=== PATIENT | male | born 1950 | race Caucasian/White ===

== ENCOUNTER 2023-09-08 10:05 | Outpatient (RCR) | payer MEDICARE, OTHER, SELFPAY | END 2023-09-08 23:59 | disposition home or self-care (01) | LOC: RPT 10:05 | PROVIDERS: ATTENDING PHYSICIAN Psychiatry & Neurology Neurology; FAMILY PHYSICIAN Internal Medicine | DX: R26.89 Other abnormalities of gait and mobility (principal); G20.C Parkinsonism, unspecified; Z73.6 Limitation of activities due to disability | CPT/HCPCS: 97110; 97112; 97116; 97163; 97530 ==

== ENCOUNTER 2023-10-06 11:33 | Outpatient (RCR) | payer MEDICARE, OTHER, SELFPAY | END 2023-10-06 23:59 | disposition home or self-care (01) | LOC: RPT 11:33 | PROVIDERS: ATTENDING PHYSICIAN Psychiatry & Neurology Neurology; FAMILY PHYSICIAN Internal Medicine | DX: R26.89 Other abnormalities of gait and mobility (principal); G20.A1 Parkinson's disease without dyskinesia, without mention of fluctuations; Z73.6 Limitation of activities due to disability | CPT/HCPCS: 97110; 97112; 97530 ==

== ENCOUNTER 2023-10-14 08:49 | Outpatient (RCR) | payer MEDICARE, OTHER, SELFPAY | END 2023-10-14 11:26 | disposition home or self-care (01) | LOC: RPT 08:49 | PROVIDERS: ATTENDING PHYSICIAN Psychiatry & Neurology Neurology; FAMILY PHYSICIAN Internal Medicine | DX: R26.89 Other abnormalities of gait and mobility (principal); G20.C Parkinsonism, unspecified; Z73.6 Limitation of activities due to disability | CPT/HCPCS: 97110; 97112; 97530 ==

== ENCOUNTER 2024-10-24 16:29 | Emergency (ER) | payer SELFPAY ==
[2024-10-24 16:32] VITALS: BP 167/56
--- NOTE | 2024-10-24 18:02 | ED.GENMED ---
History of Present Illness
General
Chief Complaint: Musculo-Skeletal Complaint
Source: patient
Time Seen by Provider: 10/24/24 17:56
History of Present Illness
History of Present Illness:
73-year-old male presents to the emergency room complaining of injuries from a fall. Patient was at [facility] when he was knocked over by a skid steer. Patient is complaining of some pain to the left lateral thorax, left knee. He did not
have loss of consciousness. He denies any headache. He does take Eliquis. Patient was ambulatory after the fall. He denies any shortness of breath.
Past History
Past History
ED Past Medical History: Arrthythmia and HTN
ED Past Surgical History: Cholecystectomy and Orthopedic
Social History
Personal:
Living: with family
Phy Exam
Physical Exam
Physical Exam:
General: Awake, Alert, Oriented X3. No acute distress.
Vitals: unremarkable
Head: Atraumatic
Eyes: Pupils equal, EOMI
Throat: Airway intact, no exudates
Neck: Trachea midline
Chest: Mild tenderness palpation lateral, lower left thorax
Lungs: Clear and equal b/l
Heart: Regular rate, no murmurs
Abd: Soft, Nontender, No pulsatile mass
Neuro: Cranial nerves intact, muscle strength equal bilaterally
Skin: Warm, dry, no rash
Extremities: pulses equal b/l, no edema. Hematoma left medial knee. Remainder the knee has no tenderness palpation. Range of motion appears intact.
Course
Orders/Labs/Results
Orders:
Orders
10/24/24 16:37
CT Head W/o Iv Contrast Urgent
Comment:
Reason For Exam: head injury on eliquis
10/24/24 18:02
CR Chest - 2 Views Urgent
Comment:
Reason For Exam: fall, left side pain
Knee, Left 4 or More Views [CR Knee - Left 4 Or More View*] Urgent
Comment:
Reason For Exam: fall, pain
Vital Signs
Initial and Last Documented VS:
Initial Vital Signs
Temp Pulse Resp BP Pulse Ox
98.1 F 64 20 167/56 97
10/24/24 16:32 10/24/24 16:32 10/24/24 16:32 10/24/24 16:32 10/24/24 16:32
Last Documented Vital Signs
Temp Pulse Resp BP Pulse Ox
98.1 F 64 20 167/65 99
10/24/24 16:32 10/24/24 16:32 10/24/24 16:32 10/24/24 18:05 10/24/24 18:58
MDM/Problems Addressed
Differential Diagnosis Includes:
Rib fracture, pneumothorax, contusion, tibia fracture, knee contusion, intracranial injury
MDM/Problems Addressed:
Patient CT shows no acute abnormality. Imaging does not show any acute fracture. Chest x-ray also is negative for pneumothorax or effusion. Patient ambulated about the department without any difficulty. Stable for discharge home.
*Radiology
Radiology exam reviewed: preliminary read by ED provider (Knee x-ray, degenerative diseases no fracture, chest x-ray, no acute abnormality. CXR: NAD) and radiology read reviewed
*Pulse Oximetry
Patient hypoxic: no
*Critical Care Note
Total Time (30-74mins, 75-104mins- exclusive of procedures): Not Applicable
ED Attending Note
-
Portions of this chart may have been created with voice recognition software.� Occasional wrong word or��sound alike� substitutions may have occurred due to the inherent limitations of voice recognition software.
Discharge Plan
Departure
Patient Disposition: Home (Routine Discharge)
Date of Disposition: 10/24/24
Time of Disposition: 19:16
Patient with high blood pressure during this ER visit?: Yes
Condition: Good
Discharge Problem:
Contusion of knee, left, Chest wall contusion
Instructions: Contusion (DC), BLOOD PRESSURE
Prescriptions:
No Action
atorvastatin 40 MG tablet
20 mg PO HS
omega [id number]-[id number]-fish oil 1 EACH capsule
1,000 mg PO DAILY
metformin 500 MG tablet
500 mg PO BID@0800,1700 Qty: 60 0RF
pantoprazole 40 MG tablet,delayed release (DR/EC)
40 mg PO DAILY
apixaban [Eliquis] 5 MG tablet
5 mg PO BID
losartan 25 MG tablet
25 mg PO BID Qty: 60 0RF
furosemide 20 MG tablet
60 mg PO DAILY Qty: 90 0RF
Referrals:
Marito Verduzco DO [Family Provider] -
Interventions
Interventions:
*Risk Screen - Suicide Last Done: 10/24/24 18:05
*General Assessment Last Done: 10/24/24 16:32
*Neglect/Abuse Screening Last Done: 10/24/24 18:05
*ED- Fall Risk Assessment Last Done: 10/24/24 18:04
*ED COVID-19 Vaccine History Last Done: 10/24/24 18:04
ED-Musculoskeletal Assessment Last Done: 10/24/24 18:04
Discharge Date and Time
Print Language: ARMENIAN
[2024-10-24 18:04] VITALS: BMI 36.9
[2024-10-24 18:05] VITALS: BP 167/65
[2024-10-24 19:00] VITALS: BP 164/89
== END 2024-10-24 20:24 | disposition home or self-care (01) ==
LOC: EMR 16:29
PROVIDERS: EMERGENCY PHYSICIAN Emergency Medicine; FAMILY PHYSICIAN Internal Medicine
DX: S80.02XA Contusion of left knee, initial encounter (principal); S20.212A Contusion of left front wall of thorax, initial encounter; W19.XXXA Unspecified fall, initial encounter; I10 Essential (primary) hypertension; Z79.01 Long term (current) use of anticoagulants
CPT/HCPCS: 99284; 70450; 71046; 73564